=== PATIENT | female | born 1975 | race Caucasian/White ===

== ENCOUNTER 2017-06-06 10:45 | Emergency (ER) | payer BC ==
[2017-06-06] MEDS ORDERED: Lidocaine 2% VISCOUS* 15 ML UDC PO ONE (13:15)
[2017-06-06] MEDS ORDERED: Al Hydrox/Mg Hydrox/Simet LIQ* 30 ML UDC PO ONE (13:15)
--- NOTE | 2017-06-06 13:55 | RAD ---
Indication: Chest pain. 2 views of the chest including dual energy PA views demonstrate no mediastinal shift. Heart is normal size and configuration. Lung mohamud appear clear. IMPRESSION: No active cardiopulmonary disease is noted.
[2017-06-06] MEDS ORDERED: Sucralfate TAB* 1 GM PO ONE (16:01)
[2017-06-06 18:19] VITALS: BP 100/53
--- NOTE | 2017-06-06 18:38 | ED ---
Katerina Hoyt Nilda, scribed for Rigoberto Jaquez MD on 06/06/17 at 1353 . Abdominal Pain/Female - HPI Summary HPI Summary: This patient is a 41 year old F presenting to [facility] accompanied by with a chief complaint of intermittent vomiting since this morning s/p taking doxycycline. Patient visited [facility] yesterday and was diagnosed with pneumonia and prescribed the antibiotic. The patient rates the pain 7/10 in severity. Symptoms alleviated by nothing. Patient reports productive cough (aggravated by deep inspiration), and burning pain in esophagus. - History of Current Complaint Chief Complaint: EDAbdPain Stated Complaint: ALLERGIC REACTION Time Seen by Provider: 06/06/17 12:16 Hx Obtained From: Patient Onset/Duration: Sudden Onset, Still Present Timing: Intermittent Episode Lasting Severity Currently: Moderate Pain Intensity: 7 Pain Scale Used: 0-10 Numeric Location: Other - Esophageal burning Character: Burning Aggravating Factor(s): Other: - Doxycycline Associated Signs and Symptoms: Positive: Other: - vomiting, burning pain in esophagus, cough Allergies/Adverse Reactions: Allergies Allergy/AdvReac Type Severity Reaction Status Date / Time Morphine Allergy VOMIT Verified 03/24/16 07:15 ENVIRONMENTAL Allergy Unknown Uncoded 03/24/16 07:15 Reaction Details PMH/Surg Hx/FS Hx/Imm Hx Endocrine/Hematology History: Denies: Hx Anticoagulant Therapy, Hx Diabetes, Hx Thyroid Disease Cardiovascular History: Denies: Hx Hypertension, Hx Pacemaker/ICD Respiratory History: Denies: Hx Asthma, Hx Chronic Obstructive Pulmonary Disease (COPD) History: Denies: Hx Renal Disease Sensory History: Denies: Hx Contacts or Glasses, Hx Hearing Aid Opthamlomology History: Denies: Hx Contacts or Glasses Neurological History: Denies: Hx Dementia, Hx Seizures Comment Only: Other Neuro Impairments/Disorders - RODRÍGUEZ, NECK PAIN, NAUSEA, PHOTOPHOBIA X 1 MONTH SINCE SPINAL STEROID INJECTION Psychiatric History: Reports: Hx Anxiety - CONTROL WITH MEDS, Hx Depression Denies: Hx Substance Abuse - Surgical History Surgery Procedure, Year, and Place: 1996, 2006, 2009 CSECTIONS X 3, [facility] X1, [facility] , X 1, [facility] X1. 2007 DIAGNOSTIC LAPAROSCOPY. 2007 LAPAROSCOPIC CHOLECYSTECTOMY, [facility]. 2009 HYSTERECTOMY WITH BILATERAL SALPINGECTOMY, [facility] Hx Anesthesia Reactions: Yes - NAUSEA Infectious Disease History: Yes Infectious Disease History: Denies: Hx Hepatitis, Hx Human Immunodeficiency Virus (HIV), Traveled Outside the [place] in Last 30 Days - Family History Known Family History: Negative: Hypertension, Diabetes - Social History Alcohol Use: Rare Alcohol Amount: SOCIALLY Substance Use Type: Reports: None Smoking Status (MU): Smoker, Current Status Unknown Type: Cigarettes Amount Used/How Often: SOCIALLY Have You Smoked in the Last Year: Yes Review of Systems Positive: Cough - productive cough Positive: Abdominal Pain - burning in esophageal area, Vomiting All Other Systems Reviewed And Are Negative: Yes Physical Exam Triage Information Reviewed: Yes Vital Signs On Initial Exam: Initial Vitals Temp Pulse Resp BP Pulse Ox 98.1 F 81 22 110/53 97 06/06/17 10:53 06/06/17 10:53 06/06/17 10:53 06/06/17 10:53 06/06/17 10:53 Vital Signs Reviewed: Yes Appearance: Positive: Well-Appearing, No Pain Distress, Obese Skin: Positive: Warm, Skin Color Reflects Adequate Perfusion, Dry Head/Face: Positive: Normal Head/Face Inspection Eyes: Positive: Normal ENT: Positive: Normal ENT inspection Neck: Positive: Supple, Nontender Respiratory/Lung Sounds: Positive: Clear to Auscultation, Breath Sounds Present Cardiovascular: Positive: RRR Abdomen Description: Positive: Nontender, Soft Bowel Sounds: Positive: Present Musculoskeletal: Positive: Normal Neurological: Positive: Normal Psychiatric: Positive: Normal, Affect/Mood Appropriate Diagnostics - Vital Signs Vital Signs Temp Pulse Resp BP Pulse Ox 06/06/17 11:56 98.1 F 96 22 107/58 98 06/06/17 10:53 98.1 F 81 22 110/53 97 - Laboratory Lab Statement: Any lab studies that have been ordered have been reviewed, and results considered in the medical decision making process. - Radiology CXR Radiology Interpretation Completed By: Radiologist - No active cardiopulmonary disease is noted. ED physician reviewed this report and agrees. Re-Evaluation - Re-Evaluation First Eval Re-Evaluation Time: 17:57 Comment: ED Physician discussed D/C plan and pharmacy for scripts with patient. Patient is agreeable with plan. Abdominal Pain Fem Course/Dx - Course Course Of Treatment: Ms. Salazar was started on doxycycline for a cough. She vomited and now has the feeling of burning and FB in her midchest. She improved here with a GI cocktail which she was able to drink and keep down. I think she has pill esophagitis and will treat her with sucralfate and zofran. She will swithc from the Doxy to a z-pack. - Diagnoses Provider Diagnoses: Esophagitis Discharge - Discharge Plan Condition: Stable Disposition: HOME Prescriptions: Azithromycin TAB* [Zithromax TAB (Z-ISMAEL) 250 mg #6 tabs] 2 tab PO .TODAY, THEN 1 DAILY #1 ismael Ondansetron ODT TAB* [Zofran Odt TAB*] 4 mg PO Q6H PRN #20 tab.odt PRN Reason: Nausea/Vomiting Sucralfate TAB* [Carafate*] 1 gm PO QID #40 tab Patient Education Materials: Esophagitis (ED) Referrals: Danny ENCINAS,Eulalio Ponce [Primary Care Provider] - (Follow up with primary care physician in 1 week if symptoms do not improve. ) Additional Instructions: RETURN TO THE EMERGENCY DEPARTMENT FOR CHANGING OR WORSENING SYMPTOMS. The documentation as recorded by the Katerina lechuga Nilda accurately reflects the service I personally performed and the decisions made by me, Rigoberto Jaquez MD.
== END 2017-06-06 18:19 | disposition home or self-care (01) ==
LOC: ED 10:45
DX: K20.9 Esophagitis, unspecified (principal); R11.10 Vomiting, unspecified; R05 Cough; R10.9 Unspecified abdominal pain; Z72.0 Tobacco use
CPT/HCPCS: 71020; 99283; A9270-GY

== ENCOUNTER → 2017-12-30 | Emergency (ER) | payer BC ==
[2017-12-30 14:31] VITALS: BP 103/58
[2017-12-30 15:23] LABS: Urine Appearance Clear; Urine Blood Negative (Negative); Urine Color Yellow; Urine Ketones Negative (Negative); Urine Protein Negative (Negative); Urine Specific Gravity 1.013 (1.010-1.030); Urine Urobilinogen Negative (Negative)
[2017-12-30 16:35] LABS: ABS Basophils 0.1 10^3/ul (0-0.2); ABS Eosinophils 0.4 10^3/ul (0-0.6); ABS Lymphocytes 2.1 10^3/ul (1.0-4.8); ABS Monocytes 0.5 10^3/ul (0-0.8); ABS Neutrophils 4.7 10^3/ul (1.5-7.7); ABS Nucleated RBC 0 10^3/ul; Hematocrit 39 % (35-47); Hemoglobin 13.1 g/dl (12.0-16.0); Lymphocyte % 27.3 % (25-47); Mean Corpuscular HGB Conc 34 g/dl (31-36); Mean Corpuscular Hemoglobin 29 pg (27-31); Mean Corpuscular Volume 87 fL (80-97); Mean Platelet Volume 7.7 um3 (7.4-10.4); Nucleated Red Blood Cells % 0; Platelet Count 266 10^3/ul (150-450); Red Blood Count 4.47 10^6/ul (4.0-5.4); Red Cell Distribution Width 13 % (10.5-15); White Blood Count 7.8 10^3/ul (3.5-10.8)
--- NOTE | 2017-12-30 16:54 | RAD ---
CLINICAL HISTORY: Left flank pain COMPARISON: March 31, 2010 TECHNIQUE: Multiple contiguous axial CT scans were obtained of the abdomen and pelvis, without intravenous contrast enhancement. Coronal and sagittal multiplanar reformations are submitted for review. Oral contrast was not administered. FINDINGS: The study is limited by the lack of intravenous contrast. This limits evaluation of the solid organs and vasculature. LUNG BASES: The lung bases are clear. LIVER: The liver is normal in shape, size, contour, and attenuation. BILE DUCTS: There is no intrahepatic or extrahepatic biliary dilatation. GALLBLADDER: The gallbladder is not visualized. Surgical clips are noted in the gallbladder fossa. PANCREAS: The pancreas is normal, without mass or ductal dilatation. SPLEEN: Normal in size and appearance. UPPER GI TRACT: Evaluation of the gastrointestinal tract is limited by incomplete gastric distention. The upper GI tract is unremarkable. SMALL BOWEL AND MESENTERY: The small bowel is normal in contour, course, and caliber. There is no obstruction or dilatation. COLON: The colon is normal in contour, course, caliber. There is no pericolonic inflammatory change. ADRENALS: Normal bilaterally. KIDNEYS: There is duplication of the right renal collecting system. There is no appreciable hydronephrosis or nephrolithiasis. BLADDER: The bladder is smooth in contour. PELVIC ORGANS: The uterus is not visualized. There is soft tissue density within the left hemipelvis that likely represents the left ovary, with a 1.8 cm simple cyst. AORTA: The aorta is normal. IVC: Unremarkable LYMPH NODES: There is no lymphadenopathy by size criteria. ABDOMINAL WALL: There is no evidence for abdominal wall hernia. BONES AND SOFT TISSUES: The bones and soft tissues are unremarkable. OTHER: None IMPRESSION: 1. NO HYDRONEPHROSIS OR NEPHROLITHIASIS. 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 3. STATUS POST HYSTERECTOMY WITH 1.8 CM LEFT OVARIAN CYST
[2017-12-30 16:56] LABS: EGFR Non-African American 78.3 (>60)
--- NOTE | 2017-12-30 18:01 | ED ---
Jonny Hoyt Stephanie, scribed for Rigoberto Jaquez MD on 12/30/17 at 1611 . Abdominal Pain/Female - HPI Summary HPI Summary: The pt is a 42 y/o F presenting to the ED with c/o abd pain since 12/28/17. Symptoms include nausea, increased urinary urgency, oliguria, decreased appetite and decreased BM. The pt denies dysuria. She states she has not had a solid BM since 4 days ago. The pt report diarrhea last week. She states when she sits it feels like she is sitting on something hard and she gets pain with passing gas. She took Zofran this morning which helped with the nausea but her abd pain has not resolved. - History of Current Complaint Chief Complaint: EDFlankPain Stated Complaint: FLANK PAIN Time Seen by Provider: 12/30/17 15:42 Hx Obtained From: Patient ?: No Onset/Duration: Gradual Onset, Lasting Days - 2, Still Present Timing: Constant Severity Currently: Moderate Pain Intensity: 8 Pain Scale Used: 0-10 Numeric Location: Discrete At: LLQ Radiates: No Character: Sharp Aggravating Factor(s): Movement, Other: - passing gas Alleviating Factor(s): Nothing Associated Signs and Symptoms: Positive: Constipation, Decreased Appetite, Nausea, Diarrhea Allergies/Adverse Reactions: Allergies Allergy/AdvReac Type Severity Reaction Status Date / Time morphine Allergy Vomiting Verified 12/30/17 14:31 ENVIRONMENTAL Allergy Unknown Uncoded 03/24/16 07:15 Reaction Details Home Medications: Home Medications Citalopram TAB* [CeleXA TAB*] 10 mg PO QPM 12/30/17 [History Confirmed 12/30/17] Fluticasone NASAL SPRAY 50MCG* [Flonase NASAL SPRAY 50MCG*] 2 spray BOTH NARES BID 12/30/17 [History Confirmed 12/30/17] PMH/Surg Hx/FS Hx/Imm Hx Endocrine/Hematology History: Denies: Hx Anticoagulant Therapy, Hx Diabetes, Hx Thyroid Disease Cardiovascular History: Denies: Hx Hypertension, Hx Pacemaker/ICD Respiratory History: Reports: Other Respiratory Problems/Disorders - PNA Denies: Hx Asthma, Hx Chronic Obstructive Pulmonary Disease (COPD) History: Denies: Hx Renal Disease Sensory History: Denies: Hx Contacts or Glasses, Hx Hearing Aid Opthamlomology History: Denies: Hx Contacts or Glasses Neurological History: Denies: Hx Dementia, Hx Seizures Comment Only: Other Neuro Impairments/Disorders - RODRÍGUEZ, NECK PAIN, NAUSEA, PHOTOPHOBIA X 1 MONTH SINCE SPINAL STEROID INJECTION Psychiatric History: Reports: Hx Anxiety - CONTROL WITH MEDS, Hx Depression Denies: Hx Substance Abuse - Surgical History Surgery Procedure, Year, and Place: 1996, 2006, 2008 CSECTIONS X 3, [facility] X1, [facility] , X 1, [facility] X1. 2006 DIAGNOSTIC LAPAROSCOPY. 2007 LAPAROSCOPIC CHOLECYSTECTOMY, [facility]. 2009 HYSTERECTOMY WITH BILATERAL SALPINGECTOMY, [facility] Hx Anesthesia Reactions: Yes - NAUSEA Infectious Disease History: No Infectious Disease History: Denies: Hx Hepatitis, Hx Human Immunodeficiency Virus (HIV), Traveled Outside the [place] in Last 30 Days - Family History Known Family History: Negative: Hypertension, Diabetes - Social History Occupation: Employed Part-time Lives: With Family Alcohol Use: Rare Alcohol Amount: SOCIALLY Hx Substance Use: No Substance Use Type: Reports: None Hx Tobacco Use: Yes Smoking Status (MU): Smoker, Current Status Unknown Type: Cigarettes Amount Used/How Often: SOCIALLY Have You Smoked in the Last Year: Yes Review of Systems Positive: Other - decreased appetite. Negative: Fever Positive: Abdominal Pain, Nausea, Other - constipation Positive: urgency, other - oliguria All Other Systems Reviewed And Are Negative: Yes Physical Exam - Summary Physical Exam Summary: Appearance: The patient is well-nourished in no acute distress and in no acute pain. Skin: The skin is warm and dry and skin color reflects adequate perfusion. HEENT: The head is normocephalic and atraumatic. The pupils are equal and reactive. The conjunctivae are clear and without drainage. Nares are patent and without drainage. Mouth reveals moist mucous membranes and the throat is without erythema and exudate. The external ears are intact. The ear canals are patent and without drainage. The tympanic membranes are intact. Neck: the neck is supple with full range of motion and non-tender. There are no carotid bruits. There is no neck vein distension. Respiratory: Chest is non-tender. Lungs are clear to auscultation and breath sounds are symmetrical and equal. Cardiovascular: Heart is regular rate and rhythm. There is no murmur or rub auscultated. There is no peripheral edema and pulses are symmetrical and equal. Abdomen: The abdomen is soft. The pt has mild LLQ tenderness. There are normal bowel sounds heard in all four quadrants and there is no organomegaly palpated. Musculoskeletal: There is no back tenderness noted. Extremities are non-tender with full range of motion. There is good capillary refill. There is no peripheral edema or calf tenderness elicited. Neurological: Patient is alert and oriented to person, place and time. The patient has symmetrical motor strength in all four extremities. Cranial nerves are grossly intact. Deep tendon reflexes are symmetrical and equal in all four extremities. Psychiatric: The patient has an appropriate affect and does not exhibit any anxiety or depression. Triage Information Reviewed: Yes Vital Signs On Initial Exam: Initial Vitals Temp Pulse Resp BP Pulse Ox 98.1 F 65 16 103/58 99 12/30/17 14:28 12/30/17 14:28 12/30/17 14:28 12/30/17 14:28 12/30/17 14:28 Vital Signs Reviewed: Yes Diagnostics - Vital Signs Vital Signs Temp Pulse Resp BP Pulse Ox 12/30/17 14:28 98.1 F 65 16 103/58 99 - Laboratory Lab Results: Lab Results 12/30/17 Range/Units 15:02 Urine Color Yellow Urine Appearance Clear Urine pH 7.0 (5-9) Ur Specific [place] 1.013 (1.010-1.030) Urine Protein Negative (Negative) Urine Ketones Negative (Negative) Urine Blood Negative (Negative) Urine Nitrate Negative (Negative) Urine Bilirubin Negative (Negative) Urine Urobilinogen Negative (Negative) Ur Leukocyte Esterase Negative (Negative) Urine Glucose Negative (Negative) Result Diagrams: 12/30/17 16:29 12/30/17 16:29 Lab Statement: Any lab studies that have been ordered have been reviewed, and results considered in the medical decision making process. - CT Abdomen/Pelvis CT Interpretation: Positive (See Comments) CT Interpretation Completed By: Radiologist - 1. NO HYDRONEPHROSIS OR NEPHROLITHIASIS. 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 3. STATUS POST HYSTERECTOMY WITH 1.8 CM LEFT OVARIAN CYST. ED physician has reviewed this report. Re-Evaluation - Re-Evaluation First Eval Re-Evaluation Time: 17:34 Change: Unchanged - ED physician discussed plan of discharge with the pt and the pt understands and agrees. ED physician advised the pt to follow up with OBGYN. Abdominal Pain Fem Course/Dx - Course Course Of Treatment: The source of Ms. White's pain is uncertain. She does have an ovarian cyst which is something she has had a lot of trouble with in the past, indeed it was the reason she had a hysterectomy. This may be the source of the pain and I will treat her symptomatically with close F/U. - Diagnoses Provider Diagnoses: Ovarian cyst Discharge - Sign-Out/Discharge Documenting (check all that apply): Discharge/Admit/Transfer - discharge - Discharge Plan Condition: Stable Disposition: HOME Prescriptions: traMADol TAB* [Ultram*] 50 mg PO Q6HR PRN #20 tab MDD 4 PRN Reason: Pain Patient Education Materials: Ovarian Cyst (ED) Referrals: Mulu Mathis MD [Medical Doctor] - 2 Days Additional Instructions: Return to the ED for any new or worsening symptoms. - Billing Disposition and Condition Condition: STABLE Disposition: HOME The documentation as recorded by the Jonny lechuga Stephanie accurately reflects the service I personally performed and the decisions made by me, Rigoberto Jaquez MD.
== END | disposition home or self-care (01) ==
LOC: ED 14:20
DX: N83.209 Unspecified ovarian cyst, unspecified side (principal); R10.32 Left lower quadrant pain; K59.00 Constipation, unspecified; R11.0 Nausea; R19.7 Diarrhea, unspecified; R63.0 Anorexia; Z72.0 Tobacco use
CPT/HCPCS: 36415; 74176; 80053; 81003; 83605; 85025; 86140; 99282